=== PATIENT | female | born 1980 | race Hispanic/Latino ===

== ENCOUNTER 2019-04-12 13:23 | Emergency (ER) | payer SELFPAY ==
[2019-04-12 13:59] VITALS: BP 142/73
--- NOTE | 2019-04-12 14:00 | Event Note ---
ED Screening Note Date of service: 04/12/19 Time: 13:59 ED Screening Note: 38 y o f with pmh of asthma presents with cough and no relief with albuterol inhaler at home This initial assessment/diagnostic orders/clinical plan/treatment(s) is/are subject to change based on patients health status, clinical progression and re- assessment by fellow clinical providers in the ED. Further treatment and workup at subsequent clinical providers discretion. Patient/guardian urged not to elope from the ED as their condition may be serious if not clinically assessed and managed. Initial orders include: solumedrol breathing treatment cxr
--- NOTE | 2019-04-12 16:22 | Emergency Department Report ---
Minor Respiratory - HPI Chief Complaint: Upper Respiratory Infection Stated Complaint: LORETTA Time Seen by Provider: 04/12/19 14:58 Duration: 2 Days Pain Location: Other (bodyaches/10) Severity: mild Minor Respiratory: Yes Rhinorrhea (nasal congestion), Yes Able to Tolerate Fluids, Yes Cough (congested cough or wheeze in), Yes Sick Contacts, Yes Fever (fever and chills), No Sore Throat, No Ear Pain, No Hemoptysis, No Chest Pain, No Shortness of Breath Other History: 38-year-old female here report that she did have an cough productive and dark-colored mucus 2 days. She says she has nasal and chest congestion. Reports fever and has been taking Tylenol and her nebulizer treatment for asthma. Reports shortness of breath with coughing. She says she does not usually get fever with her asthma attack. She has a history of hypertension. Denies any chest pain. Denies any abdominal pain. ED Review of Systems ROS: Stated complaint: LORETTA Other details as noted in HPI Constitutional: chills, fever Eyes: denies: eye discharge ENT: congestion. denies: ear pain, throat pain Respiratory: cough, shortness of breath, SOB with exertion, wheezing. denies: SOB at rest, stridor Cardiovascular: denies: chest pain, palpitations, edema, syncope Gastrointestinal: denies: abdominal pain, nausea, vomiting Genitourinary: denies: dysuria Musculoskeletal: myalgia. denies: back pain, joint swelling, arthralgia Skin: denies: rash Neurological: denies: headache, numbness, paresthesias, abnormal gait, vertigo ED Past Medical Hx - Past Medical History Previous Medical History?: Yes Hx Asthma: Yes - Surgical History Past Surgical History?: Yes Hx Cholecystectomy: Yes Additional Surgical History: D&C - Family History Family history: hypertension - Social History Smoking Status: Current Every Day Smoker Substance Use Type: Alcohol - Medications Home Medications: Home Medications Medication Instructions Recorded Confirmed Last Taken Type Sulfamethoxazole/Trimethoprim 1 each PO BID #14 tablet 09/04/13 Unknown Rx [Bactrim Ds] Amoxicillin/K Clav Tab [Augmentin 1 tab PO BID #20 tablet 05/07/14 Unknown Rx 875MG] Fluticasone Propionate [Flonase] 2 sprays NS QDAY #1 bottle 05/07/14 Unknown Rx Loratadine [Claritin] 10 mg PO DAILY #30 tablet 05/07/14 Unknown Rx Promethazine /Codeine 5 ml PO Q6H PRN #150 udc 05/07/14 Unknown Rx [Phenergan/Codeine 6.25-10 mg/5 ml] Ibuprofen [Motrin 800 MG tab] 800 mg PO Q8HR PRN #20 tablet 01/23/15 Unknown Rx Prednisone [predniSONE 10 mg 10 mg PO .TAPER #1 tab.ds.pk 01/23/15 Unknown Rx (6-Day Pack, 21 Tabs)] cephALEXin [Keflex] 500 mg PO Q12HR #20 cap 01/23/15 Unknown Rx Albuterol Sulfate [Proair 90 mcg IH Q4HR PRN #1 container 11/13/15 Unknown Rx Respiclick] levoFLOXacin [Levaquin TAB] 500 mg PO DAILY #7 tablet 11/13/15 Unknown Rx predniSONE [Deltasone] 50 mg PO QDAY #5 tab 11/13/15 Unknown Rx Acetaminophen [Tylenol] 500 mg PO Q6H PRN #12 tablet 04/12/19 Unknown Rx Cetirizine HCl [ZyrTEC] 10 mg PO QAM 14 Days #14 capsule 04/12/19 Unknown Rx Fluticasone [Flonase] 1 spray NS QDAY 14 Days #1 bottle 04/12/19 Unknown Rx Oseltamivir [Tamiflu] 75 mg PO BID 5 Days #10 cap 04/12/19 Unknown Rx guaiFENesin/CODEINE [Robitussin AC] 10 ml PO QHS PRN #70 oral.liqd 04/12/19 Unknown Rx predniSONE [Deltasone] 50 mg PO QDAY 5 Days #5 tab 04/12/19 Unknown Rx Minor Respiratory Exam - Exam General: Vital signs noted. No distress. Alert and acting appropriately. This is a 38-year-old female well-nourished well-developed in no acute distress. HEENT: Yes Moist Mucous Membranes (uvula midline, oral airways patent), Yes Rhinorrhea (nasal congestion), No Pharyngeal Erythema, No Pharyngeal Exudates, No Conjuctival Injection, No Frontal Tenderness, No Maxillary Tenderness Ear: Neither TM Bulge (bilateral middle ear effusion), Neither TM Erythema, Neither EAC Pain, Neither EAC Discharge Neck: Yes Supple (for range of motion), No Adenopathy Lungs: Yes Good Air Exchange, Yes Wheezes (wheezing to upper lung reed), Yes Ronchi (rhonchi cleared with cough and), Yes Cough (congested cough), No Stridor, No Labored Respirations, No Retractions, No Use of Accessory Muscles, No Other Abnormal Lung Sounds Heart: Yes Regular, No Murmur Abdomen: Yes Normal Bowel Sounds (all quadrants), No Tenderness (all quadrants), No Peritoneal Signs Skin: No Rash, No Edema Neurologic: Alert and oriented, no deficits. Musculoskeletal: Unremarkable. No clubbing, cyanosis or edema. +2 pulses to all extremities ED Course Vital Signs 04/12/19 04/12/19 13:58 15:52 Temperature 99.8 F H 99.1 F Pulse Rate 95 H Respiratory 18 Rate Blood Pressure 142/73 O2 Sat by Pulse 98 Oximetry - Reevaluation(s) Reevaluation #1: 04/12/19 18:44 Patient given Xopenex 1.26 mg and Atrovent 1 mg nebulizer treatment, Tylenol 975 mg by mouth and Decadron 10 mg IM and emergency room. Upon reevaluation her lung sounds clear and she says she is feeling a lot better. ED Medical Decision Making - Radiology Data Radiology results: report reviewed Chest x-ray dictated by radiologist and report reviewed by myself. Please see details below Findings [facility] [address] [place] [address] XRay Report Signed Patient: CAREY CASTILLO MR#: [id number] : 1980 Acct:[id number] Age/Sex: 38 / F ADM Date: 04/12/19 Loc: ED Attending Dr: Ordering Physician: POPEYE ALLEN Date of Service: 04/12/19 Procedure(s): XR chest routine 2V Accession Number(s): [id number] cc: POPEYE ALLEN Fluoro Time In Minutes: CHEST 2 VIEWS INDICATION / CLINICAL INFORMATION: sob/cough. COMPARISON: Chest x-ray on 11/13/2015. FINDINGS: SUPPORT DEVICES: None. HEART / MEDIASTINUM: No significant abnormality. LUNGS / PLEURA: No significant pulmonary or pleural abnormality. No pneumothorax. ADDITIONAL FINDINGS: No significant additional findings. IMPRESSION: 1. No acute findings. Signer Name: Etienne Correa MD Signed: 04/12/2019 5:28 PM Workstation Name: [id number] Transcribed By: ANSON Dictated By: Etienne Correa MD Electronically Authenticated By: Etienne Correa MD Signed Date/Time: 04/12/19 1878 DD/DT: 12 - Medical Decision Making This is a 38-year-old female here with her children for cold and cough symptoms. She has a history of asthma and takes albuterol and Advair. Her son has been sick and she said after her son became sick she also became sick 2 days ago. Son tested positive for influenza B. Her chest x-ray shows no acute cardiopulmonary findings. She was given nebulizer treatment, Tylenol, Decadron and emergency room and she says she is feeling better. Vital signs are better and she has low-grade temp. Patient with a viral bronchitis and exposed to influenza with cough and fever and she is aware for diagnosis and treatment plan. She does not have a primary care doctor so I discussed the patient is to follow-up with outside Medical Center. Good Rx scarred given along with some outside Medical Center card. I discussed with her that if her condition worsens to return to the emergency room and she has her nebulizer treatment and inhaler at home so I told her to continue to take that every 4-6 hours 3 days and then as needed for albuterol and take Advair twice a day as usual. Patient will be started on Tamiflu. She was given prescription for Tamiflu, prednisone, Zyrtec and Flonase , guaifenesin with codeine cough syrup also given. Discharged home in stable condition - Differential Diagnosis PNA, bronchitis, asthma exacerbation, viral syndrome, URI Critical care attestation.: If time is entered above; I have spent that time in minutes in the direct care of this critically ill patient, excluding procedure time. ED Disposition Clinical Impression: Viral bronchitis, Exposure to influenza, Cough in adult patient, Fever and chills Disposition: - TO HOME OR SELFCARE Is pt being admited?: No Does the pt Need Aspirin: No Condition: Stable Instructions: Fever in Adults (ED), Acute Bronchitis (ED), Acute Cough (ED) Additional Instructions: Please follow up with primary care physician in 2 days and a few condition worsens return to the emergency room. In his prescribing please do not take guaifenesin with codeine while driving or operating heavy machinery as this medication causes drowsiness Take all of the medication as prescribed Inrease fluid intake to 2-3 L of water and/or Gatorade daily. Rest for 72 hours Prescriptions: guaiFENesin/CODEINE [Robitussin AC] 10 ml PO QHS PRN #70 oral.liqd PRN Reason: Cough Acetaminophen [Tylenol] 500 mg PO Q6H PRN #12 tablet PRN Reason: fever and her pain predniSONE [Deltasone] 50 mg PO QDAY 5 Days #5 tab Fluticasone [Flonase] 1 spray NS QDAY 14 Days #1 bottle Oseltamivir [Tamiflu] 75 mg PO BID 5 Days #10 cap Cetirizine HCl [ZyrTEC] 10 mg PO QAM 14 Days #14 capsule Referrals: NE MONAHAN, [Primary Care Provider] - 04/14/19 Forms: Work/School Release Form(ED)
[2019-04-12] MEDS ORDERED: LEVALBUTEROL 0.63 MG/3 ML NEBU IH ONE (16:23)
[2019-04-12] MEDS ORDERED: IPRATROPIUM 0.02% NEBU 2.5 ML IH ONE (16:23)
[2019-04-12] MEDS ORDERED: dexAMETHasone 4 MG/ML VIAL IM STA (16:23)
[2019-04-12] MEDS ORDERED: ACETAMINOPHEN 325 MG TAB PO ONE (16:23)
--- NOTE | 2019-04-12 17:33 | XRay Report ---
CHEST 2 VIEWS INDICATION / CLINICAL INFORMATION: sob/cough. COMPARISON: Chest x-ray on 11/13/2015. FINDINGS: SUPPORT DEVICES: None. HEART / MEDIASTINUM: No significant abnormality. LUNGS / PLEURA: No significant pulmonary or pleural abnormality. No pneumothorax. ADDITIONAL FINDINGS: No significant additional findings. IMPRESSION: 1. No acute findings. Signer Name: Etienne Correa MD Signed: 04/12/2019 5:28 PM Workstation Name: [id number]
== END 2019-04-12 19:01 | disposition home or self-care (01) ==
LOC: ED 13:23
DX: J20.8 Acute bronchitis due to other specified organisms (principal); Z20.828 Contact with and (suspected) exposure to other viral communicable diseases; J45.909 Unspecified asthma, uncomplicated; F17.200 Nicotine dependence, unspecified, uncomplicated; Z90.49 Acquired absence of other specified parts of digestive tract; Z79.899 Other long term (current) drug therapy
CPT/HCPCS: 71046; 87400; 94640; 96372; 99284; J1100; 94644

== ENCOUNTER 2020-10-19 18:34 | Emergency (ER) | payer SELFPAY ==
[2020-10-19 19:42] VITALS: BP 133/90
[2020-10-19] MEDS ORDERED: ALBUTEROL 2.5 MG/3 ML NEBU IH ONE ×3 (19:51→19:53)
[2020-10-19] MEDS ORDERED: IPRATROPIUM 0.02% NEBU 2.5 ML IH ONE ×2 (19:51→19:53)
--- NOTE | 2020-10-19 19:51 | Event Note ---
ED Screening Note Date of service: 10/19/20 Time: 19:49 ED Screening Note: Patient is a 40-year-old white female with a history of chronic tobacco abuse, bronchitis, GERD who presents to the ED with complaint of acute onset persistent shortness of breath, wheezing, chest tightness, persistent cough with yellow phlegm for the last 1 week, worse in the last 2 days. Patient states that she has been using her albuterol nebulizer at home with no relief. Patient denies dizziness, syncope, chest pain, abdominal pain, nausea, vomiting, diarrhea, fever, chills, change in vision, syncope, sore throat or headache. This initial assessment/diagnostic orders/clinical plan/treatment(s) is/are subject to change based on patients health status, clinical progression and re- assessment by fellow clinical providers in the ED. Further treatment and workup at subsequent clinical providers discretion. Patient/guardian urged not to elope from the ED as their condition may be serious if not clinically assessed and managed. Initial orders include: DuoNeb, oral prednisone, chest x-ray
[2020-10-19] MEDS ORDERED: predniSONE 20 MG TAB PO ONE (19:52)
--- NOTE | 2020-10-19 20:28 | XRay Report ---
CHEST 1 VIEW 10/19/2020 8:11 PM INDICATION / CLINICAL INFORMATION: cough. COMPARISON: 04/12/2019 FINDINGS: SUPPORT DEVICES: None. HEART / MEDIASTINUM: No significant abnormality. LUNGS / PLEURA: No significant pulmonary or pleural abnormality. No pneumothorax. ADDITIONAL FINDINGS: No significant additional findings. IMPRESSION: 1. No acute findings. Signer Name: Jesse Mcfadden MD Signed: 10/19/2020 8:24 PM Workstation Name: [id number]
--- NOTE | 2020-10-19 21:42 | Emergency Department Report ---
ED Shortness of Breath HPI - General Chief Complaint: Adult Asthma Stated Complaint: diff breathing Source: patient Mode of arrival: Ambulatory Limitations: No Limitations - History of Present Illness Initial Comments: Patient is a 40-year-old white female with a history of asthma, GERD, hypertension and chronic tobacco abuse who presents to the ED with complaint of acute onset persistent shortness of breath, nasal and sinus congestion, persistent dry cough with intermittent wheezing and shortness of breath with chest tightness for the last 1 week, worse in the last 2 days. Patient states that prior to arrival in the ED she had used her albuterol nebulizer daily as needed for the last 3 days with no relief. Patient states that her symptoms got worse especially in the last 6 hours. Patient denies dizziness, syncope, chest pain, nausea and vomiting, diarrhea, dysuria, urinary frequency and urgency, abdominal pain, fever, chills, sore throat, palpitations or neck pain. MD Complaint: shortness of breath, cough, "asthma attack" -: Sudden, week(s) (1) Severity: moderate Pain Scale: 4 Quality: other (Tightness) Consistency: constant Improves With: nothing Worsens With: nothing Known History Of: asthma Context: allergen exposure, smoke/fume exposure, anxiety Associated Symptoms: chest pain (Chest tightness), cough Treatments Prior to Arrival: bronchodilator - Related Data Home Oxygen Therapy: No Previous Rx's Medication Instructions Recorded Last Taken Type Sulfamethoxazole/Trimethoprim 1 each PO BID #14 tablet 09/04/13 Unknown Rx [Bactrim Ds] Amoxicillin/K Clav Tab [Augmentin 1 tab PO BID #20 tablet 05/07/14 Unknown Rx 875MG] Fluticasone Propionate [Flonase] 2 sprays NS QDAY #1 bottle 05/07/14 Unknown Rx Loratadine (Nf) [Claritin] 10 mg PO DAILY #30 tablet 05/07/14 Unknown Rx Promethazine /Codeine 5 ml PO Q6H PRN #150 udc 05/07/14 Unknown Rx [Phenergan/Codeine 6.25-10 mg/5 ml] Ibuprofen [Motrin 800 MG tab] 800 mg PO Q8HR PRN #20 tablet 01/23/15 Unknown Rx Prednisone [predniSONE 10 mg 10 mg PO .TAPER #1 tab.ds.pk 01/23/15 Unknown Rx (6-Day Pack, 21 Tabs)] cephALEXin [Keflex] 500 mg PO Q12HR #20 cap 01/23/15 Unknown Rx Albuterol Sulfate [Proair 90 mcg IH Q4HR PRN #1 container 11/13/15 Unknown Rx Respiclick] levoFLOXacin [Levaquin TAB] 500 mg PO DAILY #7 tablet 11/13/15 Unknown Rx predniSONE [Deltasone] 50 mg PO QDAY #5 tab 11/13/15 Unknown Rx Acetaminophen [Tylenol] 500 mg PO Q6H PRN #12 tablet 04/12/19 Unknown Rx Cetirizine HCl [ZyrTEC] 10 mg PO QAM 14 Days #14 capsule 04/12/19 Unknown Rx Fluticasone [Flonase] 1 spray NS QDAY 14 Days #1 bottle 04/12/19 Unknown Rx Oseltamivir [Tamiflu] 75 mg PO BID 5 Days #10 cap 04/12/19 Unknown Rx guaiFENesin/CODEINE [Robitussin AC] 10 ml PO QHS PRN #70 oral.liqd 04/12/19 Un known Rx predniSONE [Deltasone] 50 mg PO QDAY 5 Days #5 tab 04/12/19 Unknown Rx Azithromycin [Zithromax Z-AD] 250 mg PO DAILY #6 tablet 10/19/20 Unknown Rx Benzonatate [Tessalon Perles] 100 mg PO Q8HR #30 capsule 10/19/20 Unknown Rx Prednisone [predniSONE 10 mg 10 mg PO .TAPER #21 tab.ds.pk 10/19/20 Unknown Rx (6-Day Pack, 21 Tabs)] Allergies Allergy/AdvReac Type Severity Reaction Status Date / Time No Known Allergies Allergy Unverified 09/04/13 01:12 ED Review of Systems ROS: Stated complaint: diff breathing Other details as noted in HPI Constitutional: denies: chills, fever Eyes: denies: eye pain, eye discharge, vision change ENT: congestion. denies: ear pain, throat pain Respiratory: cough, shortness of breath, wheezing Cardiovascular: denies: chest pain, palpitations Endocrine: no symptoms reported Gastrointestinal: denies: abdominal pain, nausea, diarrhea Genitourinary: denies: urgency, dysuria, discharge Musculoskeletal: denies: back pain, joint swelling, arthralgia Skin: denies: rash, lesions Neurological: denies: headache, weakness, paresthesias Psychiatric: denies: anxiety, depression Hematological/Lymphatic: denies: easy bleeding, easy bruising ED Past Medical Hx - Past Medical History Previous Medical History?: Yes Hx Hypertension: Yes Hx GERD: Yes Hx Asthma: Yes - Surgical History Past Surgical History?: Yes Hx Cholecystectomy: Yes Additional Surgical History: D&C - Social History Smoking Status: Never Smoker - Medications Home Medications: Home Medications Medication Instructions Recorded Confirmed Last Taken Type Sulfamethoxazole/Trimethoprim 1 each PO BID #14 tablet 09/04/13 Unknown Rx [Bactrim Ds] Amoxicillin/K Clav Tab [Augmentin 1 tab PO BID #20 tablet 05/07/14 Unknown Rx 875MG] Fluticasone Propionate [Flonase] 2 sprays NS QDAY #1 bottle 05/07/14 Unknown Rx Loratadine (Nf) [Claritin] 10 mg PO DAILY #30 tablet 05/07/14 Unknown Rx Promethazine /Codeine 5 ml PO Q6H PRN #150 udc 05/07/14 Unknown Rx [Phenergan/Codeine 6.25-10 mg/5 ml] Ibuprofen [Motrin 800 MG tab] 800 mg PO Q8HR PRN #20 tablet 01/23/15 Unknown Rx Prednisone [predniSONE 10 mg 10 mg PO .TAPER #1 tab.ds.pk 01/23/15 Unknown Rx (6-Day Pack, 21 Tabs)] cephALEXin [Keflex] 500 mg PO Q12HR #20 cap 01/23/15 Unknown Rx Albuterol Sulfate [Proair 90 mcg IH Q4HR PRN #1 container 11/13/15 Unknown Rx Respiclick] levoFLOXacin [Levaquin TAB] 500 mg PO DAILY #7 tablet 11/13/15 Unknown Rx predniSONE [Deltasone] 50 mg PO QDAY #5 tab 11/13/15 Unknown Rx Acetaminophen [Tylenol] 500 mg PO Q6H PRN #12 tablet 04/12/19 Unknown Rx Cetirizine HCl [ZyrTEC] 10 mg PO QAM 14 Days #14 capsule 04/12/19 Unknown Rx Fluticasone [Flonase] 1 spray NS QDAY 14 Days #1 bottle 04/12/19 Unknown Rx Oseltamivir [Tamiflu] 75 mg PO BID 5 Days #10 cap 04/12/19 Unknown Rx guaiFENesin/CODEINE [Robitussin AC] 10 ml PO QHS PRN #70 oral.liqd 04/12/19 Unknown Rx predniSONE [Deltasone] 50 mg PO QDAY 5 Days #5 tab 04/12/19 Unknown Rx Azithromycin [Zithromax Z-AD] 250 mg PO DAILY #6 tablet 10/19/20 Unknown Rx Benzonatate [Tessalon Perles] 100 mg PO Q8HR #30 capsule 10/19/20 Unknown Rx Prednisone [predniSONE 10 mg 10 mg PO .TAPER #21 tab.ds.pk 10/19/20 Unknown Rx (6-Day Pack, 21 Tabs)] ED Physical Exam - General Limitations: No Limitations General appearance: alert, in no apparent distress - Head Head exam: Present: atraumatic, normocephalic, normal inspection - Eye Eye exam: Present: normal appearance, PERRL, EOMI Pupils: Present: normal accommodation - ENT ENT exam: Present: normal orophraynx, mucous membranes moist, TM's normal bilaterally, normal external ear exam, other (Grossly congested nasal passages) - Neck Neck exam: Present: normal inspection, full ROM. Absent: tenderness - Respiratory Respiratory exam: Present: wheezes (Diffuse coarse wheezes throughout). Absent: respiratory distress, rales, rhonchi, chest wall tenderness, accessory muscle use, decreased breath sounds, prolonged expiratory - Cardiovascular Cardiovascular Exam: Present: normal rhythm, tachycardia, normal heart sounds. Absent: systolic murmur, diastolic murmur, rubs, gallop - GI/Abdominal GI/Abdominal exam: Present: soft, normal bowel sounds. Absent: tenderness, guarding, rebound, hyperactive bowel sounds, hypoactive bowel sounds, organomegaly - Extremities Exam Extremities exam: Present: normal inspection, full ROM, normal capillary refill - Back Exam Back exam: Present: normal inspection, full ROM. Absent: tenderness, CVA tenderness (R), CVA tenderness (L), muscle spasm - Neurological Exam Neurological exam: Present: alert, oriented X3, CN II-XII intact, normal gait, reflexes normal - Psychiatric Psychiatric exam: Present: normal affect, normal mood, anxious - Skin Skin exam: Present: warm, dry, intact, normal color. Absent: rash ED Course Vital Signs 10/19/20 10/19/20 19:40 20:00 Temperature 98.5 F Pulse Rate 111 H Pulse Rate [ 98 H Bilateral Throughout] Respiratory 16 Rate Respiratory 20 Rate [Bilateral Throughout] Blood Pressure 133/90 O2 Sat by Pulse 97 Oximetry ED Medical Decision Making - Radiology Data Radiology results: report reviewed, image reviewed [facility] [address] [place] [address] XRay Report Signed Patient: CAREY CASTILLO MR#: [id number] : 1980 Acct:[id number] Age/Sex: 40 / F ADM Date: 10/19/20 Loc: ED Attending Dr: Ordering Physician: POPEYE ATKINSON Date of Service: 10/19/20 Procedure(s): XR chest 1V ap Accession Number(s): [id number] cc: POPEYE ATKINSON Fluoro Time In Minutes: CHEST 1 VIEW 10/19/2020 8:11 PM INDICATION / CLINICAL INFORMATION: cough. COMPARISON: 04/12/2019 FINDINGS: SUPPORT DEVICES: None. HEART / MEDIASTINUM: No significant abnormality. LUNGS / PLEURA: No significant pulmonary or pleural abnormality. No pneumothorax. ADDITIONAL FINDINGS: No significant additional findings. IMPRESSION: 1. No acute findings. Signer Name: Bassem Mcfadden MD Signed: 10/19/2020 8:24 PM Workstation Name: [id number] Transcribed By: RH Dictated By: BASSEM MCFADDEN III Electronically Authenticated By: BASSEM MCFADDEN III Signed Date/Time: 10/19/202023 DD/ 22 TD/TT: - Medical Decision Making This is a 40-year-old white female with a history of asthma, GERD, hypertension and chronic tobacco abuse who presents to the ED with complaint of acute onset persistent shortness of breath, nasal and sinus congestion, persistent dry cough with intermittent wheezing and shortness of breath with chest tightness for the last 1 week, worse in the last 2 days. Patient states that prior to arrival in the ED she had used her albuterol nebulizer daily as needed for the last 3 days with no relief. Patient states that her symptoms got worse especially in the last 6 hours. In the ED, patient is alert and oriented x3 and is not in any distress but tachycardic and afebrile in triage. Patient was treated in the ED with DuoNeb and oral prednisone. Chest x-ray showed no acute cardiopulmonary abnormalities or pneumonitis. On reevaluation, patient's wheezing and shortness of breath resolved medications. Patient was therefore discharged home on medications and advised to follow-up with her primary care physician in 3 to 5 days for reevaluation. Patient was advised return to the ED immediately if symptoms get worse. Patient was also counseled on the importance of quitting tobacco abuse to improve on her symptoms. - Differential Diagnosis Asthma; bronchitis; URI; pneumonia; anxiety Critical care attestation.: If time is entered above; I have spent that time in minutes in the direct care of this critically ill patient, excluding procedure time. ED Disposition Clinical Impression: Shortness of breath Asthma with exacerbation Qualifiers: Asthma severity: unspecified severity Asthma persistence: intermittent Qualified Code(s): J45.21 - Mild intermittent asthma with (acute) exacerbation Disposition: TO HOME OR SELFCARE Is pt being admited?: No Does the pt Need Aspirin: No Condition: Stable Instructions: Shortness of Breath, Adult, [id number], Cough, Adult, [id number], Asthma, Adult, [id number] Additional Instructions: The chest x-ray shows no acute cardiopulmonary abnormalities or pneumonitis. Therefore take medications as advised, drink plenty of fluids and follow-up with your primary care physician in 3 to 5 days for reevaluation. Return to the ED immediately if symptoms get worse. Consider quitting tobacco smoking habit to improve on your symptoms. Prescriptions: Prednisone [predniSONE 10 mg (6-Day Pack, 21 Tabs)] 10 mg PO .TAPER #21 tab.ds.pk Benzonatate [Tessalon Perles] 100 mg PO Q8HR #30 capsule Azithromycin [Zithromax Z-AD] 250 mg PO DAILY #6 tablet Referrals: [facility] [Provider Group] - 3-5 Days Time of Disposition: 21:40 Print Language: ANDORRAN
== END 2020-10-19 22:35 | disposition home or self-care (01) ==
LOC: ED 18:34
DX: J45.901 Unspecified asthma with (acute) exacerbation (principal); R06.02 Shortness of breath; I10 Essential (primary) hypertension; K21.9 Gastro-esophageal reflux disease without esophagitis; Z90.49 Acquired absence of other specified parts of digestive tract; Z79.1 Long term (current) use of non-steroidal anti-inflammatories (NSAID); Z79.899 Other long term (current) drug therapy
CPT/HCPCS: 71045; 94640; 99283; J7512; 94644

== ENCOUNTER 2021-11-28 03:08 | Emergency (ER) | payer SELFPAY ==
[2021-11-28 03:15] VITALS: BP 168/75
== END 2021-11-28 04:00 | disposition left against medical advice (07) ==
LOC: ED 03:08
DX: R06.02 Shortness of breath (principal); Z53.21 Procedure and treatment not carried out due to patient leaving prior to being seen by health care provider